=== PATIENT | female | born 1980 | race Caucasian/White ===

== ENCOUNTER 2020-07-20 09:12 | Outpatient (CLI) | payer BC ==
[2020-07-20] VITALS (22 sets, daily range): BP systolic 128–189; BP diastolic 83–118
[~2020-07-20 09:12] MED LIST: FAMO-128 PO; ONDA4TAB6 PO
== END 2020-07-20 23:59 | disposition home or self-care (01) ==
LOC: CARD DIAG 09:12
PROVIDERS: ATTEND Internal Medicine Cardiovascular Disease
DX: R42 Dizziness and giddiness (principal)
CPT/HCPCS: 93660

== ENCOUNTER 2023-02-18 22:48 | Emergency (ER) | payer BC ==
[~2023-02-18] VITALS: Ht 167.6 cm; Wt 70.9 kg
[2023-02-18] MEDS ORDERED: DISU250T14 PO (23:27)
[2023-02-18] MEDS ORDERED: ESCI-8 PO (23:27)
[2023-02-18] MEDS ORDERED: CLON0.1T PO (23:27)
[2023-02-18] MEDS ORDERED: LORA10TA7 PO (23:28)
[2023-02-18] MEDS ORDERED: DUPI200S (23:31)
[2023-02-18 23:33] LABS: MONOCYTES # (AUTO) 0.6 X10'3 (0-0.9); RED CELL DISTRIBUTION WIDTH 16.2 % (11.5-14.5); WHITE BLOOD COUNT 6.7 X10'3 (4.5-11.0)
[2023-02-18 23:34] LABS: BASOPHILS # (AUTO) 0.1 X10'3 (0-0.2); BASOPHILS % (AUTO) 1.3 % (0-1); EOSINOPHILS % (AUTO) 14.7 % (0-6); HEMATOCRIT 45.9 % (35.0-45.0); HEMOGLOBIN 15.6 g/dl (12.0-16.0); LYMPHOCYTES # (AUTO) 3.2 X10'3 (1.1-4.8); LYMPHOCYTES % (AUTO) 46.9 % (21-51); MEAN CORPUSCULAR VOLUME 91.2 FL (78-98); MONOCYTES % (AUTO) 8.2 % (2-12); NEUTROPHILS # (AUTO) 1.9 X10'3 (1.8-7.7); NEUTROPHILS % (AUTO) 28.9 % (42-75); PLATELET COUNT 266 X10'3 (140-440); RED BLOOD COUNT 5.04 X10'6 (4.20-5.60)
[2023-02-18 23:40] LABS: URINE HCG NEGATIVE (NEG)
[2023-02-18 23:40] LABS: ALANINE AMINOTRANSFERASE 33 U/L (12-78); ALBUMIN/GLOBULIN RATIO 1.1 (1.1-1.5); ALKALINE PHOSPHATASE 91 IU/L (46-116); ANION GAP 15 (8-16); ASPARTATE AMINO TRANSFERASE 35 U/L (10-37); BILIRUBIN,TOTAL 0.5 MG/DL (0.1-1.0); BLOOD UREA NITROGEN 4 MG/DL (7-18); BUN/CREATININE RATIO 5.9 (10.0-20.0); CALCIUM 8.5 MG/DL (8.5-10.1); CHLORIDE 106 MMOL/L (99-107); CREATININE 0.68 MG/DL (0.40-0.90); GLUCOSE 107 MG/DL (70-104); POTASSIUM 3.1 MMOL/L (3.5-5.1); SODIUM 143 MMOL/L (135-145); TOTAL CARBON DIOXIDE 21.9 MMOL/L (24-32); TOTAL PROTEIN 7.8 G/DL (6.4-8.2); eGFR > 90 ML/MIN
[2023-02-18 23:43] LABS: CLARITY,URINE CLEAR (Clear); COLOR,URINE YELLOW (Yellow); GLUCOSE, URINE NEGATIVE (Neg); KETONES,URINE NEGATIVE (Neg); LEUKOCYTE ESTERASE ,URINE NEGATIVE (Neg); NITRITES, URINE NEGATIVE (Neg); OCCULT BLOOD,URINE NEGATIVE (Neg); PROTEIN,URINE NEGATIVE (Neg); UROBILINOGEN,URINE 0.2 E.U/dL (0.2-1.0)
[2023-02-18 23:45] LABS: UA COLLECTION TYPE CLN CATCH MIDSTREAM
[2023-02-18] MEDS ORDERED: LORazepam 1 MG tablet PO ONE (23:45)
[2023-02-18 23:53] LABS: URINE AMPHETAMINE SCREEN NEGATIVE (Neg); URINE BARBITUATE SCREEN NEGATIVE (Neg); URINE BENZODIAZEPINES SCREEN POSITIVE (Neg); URINE CANNABINOID SCREEN POSITIVE (Neg); URINE COCAINE SCREEN NEGATIVE (Neg); URINE METHADONE SCREEN NEGATIVE (Neg); URINE OPIATE SCREEN NEGATIVE (Neg); URINE PHENCYCLIDINE SCREEN NEGATIVE (Neg)
[2023-02-18 23:57] LABS: TOTAL CELLS COUNTED 100
[2023-02-18 23:58] LABS: ANISOCYTOSIS 1+; PLATELET ESTIMATE NORMAL
[2023-02-19] MEDS ORDERED: haloperidol lactate 5mg/ml inj IM ONE (00:50)
[2023-02-19] MEDS ORDERED: diphenhydrAMINE 50 mg/ml inj IM STA (00:51)
[2023-02-19] MEDS ORDERED: diphenhydrAMINE 50 mg/ml inj ONE (00:52)
--- NOTE | 2023-02-19 03:50 | NUR ---
PATIENT'S PACKET WAS SENT TO [facility].
[2023-02-19 08:57] VITALS: BP 134/102
== END 2023-02-19 11:56 | disposition still patient (30) ==
LOC: ER 22:49
DX: R45.851 Suicidal ideations (principal); Z20.822 Contact with and (suspected) exposure to COVID-19; F31.9 Bipolar disorder, unspecified; I10 Essential (primary) hypertension; Z88.2 Allergy status to sulfonamides; Z88.6 Allergy status to analgesic agent; Z88.5 Allergy status to narcotic agent; Z79.899 Other long term (current) drug therapy; Z79.1 Long term (current) use of non-steroidal anti-inflammatories (NSAID)
CPT/HCPCS: 36415; 80053; 80305; 80320; 81003; 81025; 84443; 85007; 85025; 87811; 96372; 99285; J1200; J1630